=== PATIENT | male | born 1990 | race Caucasian/White ===

== ENCOUNTER 2021-09-28 13:00 | Emergency (ER) | payer OTHER, SELFPAY ==
[2021-09-28 13:01] VITALS: BP 144/88; PULSE 82; RESP 18; TEMP 36.6; O2SAT 100
--- NOTE | 2021-09-28 13:05 | PC.NURSE ---
Patient given juice and lunch tray.
[2021-09-28 13:06] LABS: Glucose Point of Care 45 mg/dl (65-105)
--- NOTE | 2021-09-28 13:52 | ED.GENADULT ---
HPI - General Adult General Chief complaint: Recheck/Abnormal Lab/Rx Stated complaint: low bloos sugar - resolved Time Seen by Provider: 09/28/21 13:46 Source: EMS Mode of arrival: EMS Limitations: no limitations History of Present Illness HPI narrative: 31-year-old male with a history of T1DM presents to the ED via EMS status post hypoglycemic episode. Patient manages his T1DM with Lantus/NovoLog. He took his usual dose of Lantus last evening (12 units) although has not taken any mealtime insulin since waking today and has not eaten since waking today. He was actually driving home from an appointment with his oral pathologist and states the next he remembers was being awoken by police. The patient apparently pulled his vehicle to the side of the road and was found unresponsive. Patient found to be profoundly hypoglycemic upon arrival of EMS and was given oral glucose. Patient given a sandwich and juice upon arrival to the ED. He is currently asymptomatic. Patient states his father is on the way to the ED and is currently requesting discharge. Related Data Allergies Allergy/AdvReac Type Severity Reaction Status Date / Time meloxicam Allergy Anaphylaxis Verified 09/28/21 13:07 Review of Systems Review of Systems: CONSTITUTIONAL: Denies fever, chills, or sweats. EYES: Denies visual changes, redness, or discharge. ENT: Denies rhinorrhea, congestion, sore throat, or otalgia. CARDIOVASCULAR: Denies chest pain, palpitations, or edema. RESPIRATORY: Denies cough or dyspnea. GASTROINTESTINAL: Denies abdominal pain, nausea, vomiting, or diarrhea. GENITOURINARY: Denies dysuria or hematuria. SKIN: Denies rash or itching. MUSCULOSKELETAL: Denies back pain, joint pain, or myalgia. NEUROLOGIC: Denies headache, numbness, dizziness, or weakness. PSYCHIATRIC: Denies anxiety or depression. All systems reviewed & are unremarkable except as noted in HPI and below Exam Narrative: GENERAL: Well-appearing, well-nourished, and in no acute distress. HEAD: Normocephalic, atraumatic. EYES: PERRLA and EOMI. ENT: Nares clear, no rhinorrhea or epistaxis. Mucous membranes moist. Oropharynx without tonsillar hypertrophy exudate or other lesions. Bilateral TMs pearly donovan nonbulging NECK: Supple. No adenopathy or masses. No carotid bruits or JVD CHEST: Clear to auscultation. No respiratory distress. No wheezes rales or rhonchi HEART: Regular rate and rhythm. No murmur heard. Normal peripheral pulses. ABDOMEN: Soft, nontender, nondistended, normal active bowel sounds. EXTREMITIES: Normal range of motion. No edema. SKIN: Warm, dry, no rash. NEURO: No focal deficits. Alert and oriented x3. PSYCH: Normal mood and affect. Course Course Emergency Course: Patient present status post hypoglycemic episode which likely occurred due to him not eating today. Patient does not take any oral diabetic medications including sulfonylureas. Patient is asymptomatic at this time after eating a sandwich and drinking juice in the ED. He is requesting ED discharge at this time, stating his father is on the way to pick him up. Patient euglycemic prior to discharge. Vital Signs Vital signs: Vital Signs Temperature 97.8 F 09/28/21 13:01 Pulse Rate 82 09/28/21 13:01 Respiratory Rate 18 09/28/21 13:01 Blood Pressure 144/88 H 09/28/21 13:01 Pulse Oximetry 100 09/28/21 13:01 Temperature 97.8 F 09/28/21 13:01 Pulse Rate 82 09/28/21 13:01 Respiratory Rate 18 09/28/21 13:01 Blood Pressure 144/88 H 09/28/21 13:01 Pulse Oximetry 100 09/28/21 13:01 Medical Decision Making Vital Signs Vital Signs: Vital Signs Temperature 97.8 F 09/28/21 13:01 Pulse Rate 82 09/28/21 13:01 Respiratory Rate 18 09/28/21 13:01 Blood Pressure 144/88 H 09/28/21 13:01 Pulse Oximetry 100 09/28/21 13:01 Temperature 97.8 F 09/28/21 13:01 Pulse Rate 82 09/28/21 13:01 Respiratory Rate 18 09/28/21 13:01 Blood Pressure 144/88 H 09/28/21 13:0
[2021-09-28 13:56] LABS: Glucose Point of Care 66 mg/dl (65-105)
[2021-09-28 14:36] LABS: Glucose Point of Care 89 mg/dl (65-105)
--- NOTE | 2021-09-28 14:38 | PC.NURSE ---
tried to do VS before patient left ED and patient refused.
== END 2021-09-28 14:42 | disposition home or self-care (01) ==
LOC: ANHED 14:13
PROVIDERS: Emergency Provider Emergency Medicine
DX: E10.649 Type 1 diabetes mellitus with hypoglycemia without coma (principal); Z79.899 Other long term (current) drug therapy
CPT/HCPCS: 82948; 99282